=== PATIENT | female | born 1945 | race Caucasian/White ===

== ENCOUNTER 2023-12-27 21:11 | Emergency (ER) | payer OTHER ==
[~2023-12-27] VITALS: Ht 165.1 cm; Wt 65.8 kg
[2023-12-27] MEDS ORDERED: HYDROCODONE/APAP 5/325MG TABLET ONE (22:29)
[2023-12-27] MEDS ORDERED: HYDR-4209 PO (22:30)
[2023-12-27] MEDS: HYDROCODONE/APAP 5/325MG TABLET PO ONE (22:32)
[2023-12-27 22:50] VITALS: BP 134/78; O2SAT 98
== END 2023-12-27 22:51 | disposition home or self-care (01) ==
LOC: ER 21:15
DX: S82.001A Unspecified fracture of right patella, initial encounter for closed fracture (principal); W01.0XXA Fall on same level from slipping, tripping and stumbling without subsequent striking against object, initial encounter; Y93.89 Activity, other specified; Y92.89 Other specified places as the place of occurrence of the external cause; Y99.8 Other external cause status
CPT/HCPCS: 73564-TC